=== PATIENT | female | born 1975 | race Caucasian/White ===

== ENCOUNTER 2017-05-12 19:13 | Emergency (ER) | payer OTHER, BC ==
[~2017-05-12] VITALS: Ht 167.6 cm; Wt 108.7 kg
[~2017-05-12 19:13] MED LIST: ALEVE220 MG PO; ASPIRIN EC325 MG PO; ASPIRIN325 MG PO; COZAAR25 MG PO; ENDOCET 5-3251 EACH PO; FENOFIBRATE145 M1 PO; FOLIC ACID1 MG PO; HUMIRA20 MG/0.4 SC; LEXAPRO10 MG PO; MEDROL4 MG PO; METHOTREXATE2.5 MG PO; MOTRIN800 MG PO; NORCO 10/3251 TABLET PO; REMICADE10 MG/ML IV; VITAMIN D22000 UNIT PO; WELLBUTRIN XL150 MG PO; XARELTO20 MG PO; ZOCOR40 MG PO
[2017-05-12 19:36] LABS: HEMATOCRIT 38.9 % (36.0-46.0); MCH 33.3 PG (29.0-34.0); MCHC 34.4 G/DL (30.0-36.0); MCV 96.8 FL (83-99); MEAN PLAT.VOLUME 9.1 uM^3 (9.5-12.4); PLATELET COUNT 348 K/uL (156-360); RBC DIS.WIDTH-CV 12.9 % (11.8-14.6); RBC DIS.WIDTH-SD 45.6 % (39-53); RED BLOOD COUNT 4.02 M/uL (3.80-5.20); WHITE BLOOD COUNT 9.2 K/uL (4.1-10.2)
[2017-05-12 19:46] LABS: CHLORIDE 105 mEq/L (99-109)
[2017-05-12 19:47] LABS: POTASSIUM 4.2 mEq/L (3.7-5.4); SODIUM 139 mEq/L (136-147)
[2017-05-12 19:48] LABS: GLUCOSE 107 mg/dL (70-99)
[2017-05-12 19:50] LABS: ANION GAP 11 MEQ/L (2-14)
[2017-05-12 19:52] LABS: GFR ESTIMATE (CALCULATED) > 59 mL/min/
[2017-05-12 19:53] LABS: UREA NITROGEN (BUN) 11 mg/dL (9-23)
[2017-05-12 20:08] LABS: PTT 28.2 SEC (25-37)
[2017-05-12 22:02] VITALS: BP 142/95
== END 2017-05-12 22:03 | disposition home or self-care (01) ==
LOC: EME 19:13 → RME 19:13
PROVIDERS: Emergency Medicine
DX: I80.02 Phlebitis and thrombophlebitis of superficial vessels of left lower extremity (principal); I10 Essential (primary) hypertension; M06.9 Rheumatoid arthritis, unspecified; J45.909 Unspecified asthma, uncomplicated; F32.9 Major depressive disorder, single episode, unspecified; Z86.73 Personal history of transient ischemic attack (TIA), and cerebral infarction without residual deficits; Z79.82 Long term (current) use of aspirin; Z87.891 Personal history of nicotine dependence
CPT/HCPCS: 80048; 85027; 85610; 85730; 93971; 99281; 99283